=== PATIENT | female | born 1935 | race Hispanic/Latino ===

== ENCOUNTER 2018-04-02 15:45 | Inpatient (IN) | payer OTHER ==
[~2018-04-02] VITALS: Ht 154.9 cm; Wt 62.2 kg
[~2018-04-02 15:45] MED LIST: AMLO5TAB9 PO; BENA40TA9 PO; CYAN1000I IM; ERGO80004 PO; HYDR-4457 PO; HYDR25TA PO; LEVOTHYROXINE PO; LIOTHYRONINE PO; METO-391 PO; TAMO20TA4 PO
[2018-04-29 16:29] VITALS: BP 140/64
[2018-04-29 16:31] LABS: BASOPHILS % (AUTO) 0.8 % (0.0-5.0); EOSINOPHILS % (AUTO) 2.1 % (0.0-8.0); HEMATOCRIT 31.8 % (36-48); LYMPHOCYTES % (AUTO) 22.3 % (21.0-51.0); MEAN CORPUSCULAR HEMOGLOBIN 28.4 pg (27.0-33.0); MEAN CORPUSCULAR HGB CONC 32.3 g/dL (32.0-36.0); MEAN CORPUSCULAR VOLUME 88.2 fL (79-99); MONOCYTES % (AUTO) 11.8 % (3.0-13.0); NUCLEATED RED BLOOD CELLS 0.1 % (0.0-0.19); PLATELET COUNT (AUTO) 167 K/uL (130-400); RED BLOOD CELL COUNT(AUTO) 3.61 MIL/uL (4.00-5.50); RED CELL DISTRIBUTION WIDTH 13.1 % (11.0-15.5); WHITE BLOOD COUNT (AUTO) 7.1 K/uL (4.8-10.8)
[2018-04-29 16:32] LABS: APPEARANCE,URINE Clear (CLEAR); BILIRUBIN,URINE Negative (NEGATIVE); COLOR,URINE Yellow (YELLOW); GLUCOSE, URINE (UA) Negative (NEGATIVE); KETONES,URINE Negative (NEGATIVE); LEUKOCYTE ESTERASE ,URINE Moderate (NEGATIVE); NITRATE,URINE Negative (NEGATIVE); OCCULT BLOOD,URINE Negative (NEGATIVE); PROTEIN,URINE Negative (NEGATIVE); UROBILINOGEN,URINE 0.2 mg/dL (0.2-1.0)
[2018-04-29 16:42] LABS: INR 1.02 (0.85-1.15); PARTIAL THROMBOPLASTIN TIME 25.4 SEC (26.3-35.5); PROTHROMBIN TIME 10.7 SEC (9.6-11.6)
[2018-04-29 16:59] LABS: BACTERIA,URINE Few /HPF (None Seen); RBC,URINE 0-1 /HPF (0-1)
[2018-04-29 17:00] LABS: SQUAMOUS EPITHELIAL CELL,UR Few /HPF (0-2)
[2018-04-29] MEDS ORDERED: ROPI0.2527 PO (17:01)
[2018-04-29] MEDS ORDERED: VORT10TA PO (17:01)
[2018-04-29 17:04] LABS: CREATININE 1.1 mg/dL (0.5-1.5)
[2018-05-01] VITALS (18 sets, daily range): BP systolic 122–149; BP diastolic 46–89
[2018-05-01] MEDS ORDERED: GENTAMICIN SULFATE 240 MG in SODIUM CHLORIDE 0.9% 100 ML IV SCH (06:00)
[2018-05-01] MEDS: CEFAZOLIN SODIUM 1 GM VIAL IVP SCH ×3 (10:00→18:52)
[2018-05-01] MEDS ORDERED: SODIUM CHLORIDE 0.9% 1000ML 1,000 ML IV ONE (10:08)
[2018-05-01] MEDS ORDERED: ACET-2743 PO (10:23)
--- NOTE | 2018-05-01 10:28 | NUR ---
VALUABLES: CLOTHING, MEDICATIONS, UPPER PARTIALS , CELL PHONE AND PURSE GIVEN TO SISTER - NAOMIE THOMAS.
[2018-05-01] MEDS ORDERED: ACETAMINOPHEN EXTRA STRENGTH 500 MG TABLET ONE (11:31)
[2018-05-01] MEDS ORDERED: CELECOXIB 200 MG CAP ONE (11:31)
[2018-05-01] MEDS ORDERED: KETOROLAC TROMETHAMINE 15MG/ML ONE (11:31)
[2018-05-01] MEDS ORDERED: OXYCODONE HCL 10 MG TAB.SR.12H PO ONE (11:32)
[2018-05-01] MEDS ORDERED: TRANEXAMIC ACID 1000MG/10ML IV ONE (11:52)
[2018-05-01] MEDS ORDERED: ROPIVACAINE 0.5% 5MG/ML 30ML IJ ONE (11:54)
[2018-05-01] MEDS ORDERED: NEOSTIGMINE 5MG/5ML SYR IV ONE (12:01)
[2018-05-01] MEDS ORDERED: PROPOFOL 10 MG/ML 20ML VIAL IV ONE (12:01)
[2018-05-01] MEDS ORDERED: LIDOCAINE PF 2% 5ML ABBOJECT ONE (12:01)
[2018-05-01] MEDS ORDERED: DEXAMETHASONE SOD PHOSPHATE 10MG/ML 1ML VIAL ONE (12:01)
[2018-05-01] MEDS ORDERED: ONDANSETRON HCL 4 MG/2 ML VIAL ONE (12:01)
[2018-05-01] MEDS ORDERED: FENTANYL CITRATE PF 50 MCG/1 ML 2ML VIAL ONE ×2 (12:01→13:07)
[2018-05-01] MEDS ORDERED: GLYCOPYRROLATE 1 MG/5 ML SYRINGE ONE (12:01)
[2018-05-01] MEDS ORDERED: ROCURONIUM 10MG/1ML SYR 10 MG/ML ML ONE (12:02)
[2018-05-01] MEDS ORDERED: MIDAZOLAM HCL 1 MG/ML 2ML VIAL ONE (12:02)
[2018-05-01] MEDS ORDERED: CEFAZOLIN SODIUM 1 GM VIAL IRRIG ONE (13:32)
[2018-05-01] MEDS ORDERED: BUPIVACAINE/EPI/PF 0.5% 30ML VIAL IJ ONE (13:35)
[2018-05-01] MEDS ORDERED: ONDANSETRON HCL 4 MG/2 ML VIAL IVP PRN (14:15)
[2018-05-01] MEDS ORDERED: DiphenhydrAMINE HCL 50 MG/ML VIAL IVP PRN (14:15)
[2018-05-01] MEDS ORDERED: KETOROLAC TROMETHAMINE 15MG/ML IV PRN (14:15)
[2018-05-01] MEDS ORDERED: OXYCODONE HCL 5 MG TAB PO PRN (14:15)
[2018-05-01] MEDS ORDERED: POTASSIUM CHLORIDE 10% ELIXIR 20 MEQ/15 ML UDCUP PO PRN (14:15)
[2018-05-01] MEDS ORDERED: POTASSIUM CHLORIDE 20MEQ/100ML 100 ML IV PRN (14:15)
[2018-05-01] MEDS ORDERED: POTASSIUM CHLORIDE 20 MEQ ERTAB PO PRN (14:15)
[2018-05-01] MEDS ORDERED: TEMAZEPAM 15 MG CAPSULE PO PRN (14:15)
[2018-05-01] MEDS ORDERED: LIDOCAINE HCL-MPF 1% 2ML VIAL IVP PRN (14:15)
[2018-05-01] MEDS ORDERED: FERROUS FUMARATE 324 MG TABLET PO PRN (14:15)
--- NOTE | 2018-05-01 15:00 | NUR ---
TRANEXAMIC 1GM GIVEN IVPB Addendum: 05/01/18 at 1515 by SCOTTY TENORIO RN RN Amended: Links added.
--- NOTE | 2018-05-01 15:55 | NUR ---
POST SURGERY PATIENT RECEIVED FROM PACU VIA HOSPITAL BED IN STABLE CONDITION. APPEARS COMFORTABLE. SHE IS AWAKE, ALERT AND ORIENTED X3. IV TO THE LEFT ARM IS PATENT WITH NO REDNESS OR SWELLING NOTED. HE DRESSING TO LEFT KNEE IS INTACT WITH GREEN LIGHT FLASHING. SHE HAS BEEN ORIENTED TO ROOM AND USE OF CALL LIGHT. ALL PERSONAL BELONGINGS ARE WITHIN REACH AND BED IS IN LOWEST POSITION. POST OP VITAL SIGNS HAVE BEEN INITIATED. WILL CONTINUE TO MONITOR.
[2018-05-01] MEDS: SODIUM CHLORIDE 0.9% 1000ML 1,000 ML IV SCH ×2 (16:11→23:55)
[2018-05-01] MEDS: OXYCODONE HCL 5 MG TAB PO PRN (16:12)
[2018-05-01] MEDS: ACETAMINOPHEN EXTRA STRENGTH 500 MG TABLET PO SCH ×2 (16:15→21:31)
[2018-05-01] MEDS ORDERED: NON-FORMULARY MEDICATION 1 EACH (Acetaminophen (Tylenol Extra Strength) 500 MG) PO PRN (16:45)
[2018-05-01] MEDS ORDERED: HYDROCHLOROTHIAZIDE 25 MG TABLET PO SCH (16:45)
[2018-05-01] MEDS ORDERED: HYDROCODONE/ACETAMINOPHEN 5/325 MG TAB PO SCH (16:45)
[2018-05-01] MEDS ORDERED: HYDROCODONE/ACETAMINOPHEN 5/325 MG TAB PO PRN (18:00)
--- NOTE | 2018-05-01 19:48 | NUR ---
DC Plan Discussed dcp w/ patient. wants to stay w/ current HH- [facility]. Signed NADIRA and choice letter. Referral faxed w/ confirmation received. [facility] already has a standard walker and 3 in 1 commode. CM to follow up tomorrow w/ [facility]. CD Addendum: 05/01/18 at 1950 by JEFFREY KAY CM Amended: Links added.
[2018-05-01] MEDS: Metoprolol Succinate 50 MG PO SCH (21:00)
[2018-05-01] MEDS: BENAZEPRIL HCL 10 MG TABLET PO SCH (21:30)
[2018-05-01] MEDS: ASPIRIN 325 MG TABLET PO SCH (21:30)
[2018-05-01] MEDS: ROPINIROLE HCL 0.25 MG TABLET PO SCH (21:30)
[2018-05-01] MEDS: FAMOTIDINE 20MG TAB 20 MG TAB PO SCH (21:30)
[2018-05-01] MEDS: PREGABALIN 25 MG CAP PO SCH (21:30)
[2018-05-01] MEDS: CELECOXIB 200 MG CAP PO SCH (21:31)
[2018-05-02 00:06] VITALS: BP 103/50
[2018-05-02] MEDS ORDERED: CEFAZOLIN SODIUM 1 GM VIAL ONE (04:37)
[2018-05-02] MEDS: CEFAZOLIN SODIUM 1 GM VIAL IVP SCH (04:39)
[2018-05-02] MEDS: ACETAMINOPHEN EXTRA STRENGTH 500 MG TABLET PO SCH ×3 (04:39→20:28)
[2018-05-02 04:47] LABS: HEMATOCRIT 26.3 % (36-48); MEAN CORPUSCULAR HEMOGLOBIN 28.9 pg (27.0-33.0); MEAN CORPUSCULAR HGB CONC 32.9 g/dL (32.0-36.0); MEAN CORPUSCULAR VOLUME 87.7 fL (79-99); PLATELET COUNT (AUTO) 147 K/uL (130-400); RED BLOOD CELL COUNT(AUTO) 2.99 MIL/uL (4.00-5.50); WHITE BLOOD COUNT (AUTO) 10.9 K/uL (4.8-10.8)
[2018-05-02 04:58] LABS: CREATININE 1.3 mg/dL (0.5-1.5); POTASSIUM 3.7 mmol/L (3.5-5.1)
[2018-05-02 04:59] VITALS: BP 114/51
[2018-05-02] MEDS: LEVOTHYROXINE 25 MCG TABLET PO SCH (06:02)
[2018-05-02] MEDS: [UNRECOGNIZED DRUG - OTHER] PO SCH ×2 (06:02→06:30)
[2018-05-02] MEDS: CELECOXIB 200 MG CAP PO SCH ×2 (08:01→20:26)
[2018-05-02] MEDS: ASPIRIN 325 MG TABLET PO SCH ×2 (08:01→20:26)
[2018-05-02] MEDS: BENAZEPRIL HCL 10 MG TABLET PO SCH ×2 (08:01→20:26)
[2018-05-02] MEDS: PREGABALIN 25 MG CAP PO SCH ×2 (08:01→20:27)
[2018-05-02] MEDS: FAMOTIDINE 20MG TAB 20 MG TAB PO SCH ×2 (08:01→20:27)
[2018-05-02] MEDS: POLYETHYLENE GLYCOL 3350 17 GM POWD.PACK PO SCH (08:01)
[2018-05-02] MEDS: TAMOXIFEN CITRATE 20 MG PO SCH ×2 (08:02→09:00)
[2018-05-02] MEDS: AMLODIPINE BESYLATE 5 MG TAB PO SCH (08:03)
[2018-05-02] MEDS: OXYCODONE HCL 5 MG TAB PO PRN (08:06)
[2018-05-02 08:13] VITALS: BP 127/52
[2018-05-02] MEDS: CALCIUM CARBONATE 500 MG TABLET PO PRN ×2 (11:07→20:27)
[2018-05-02 11:55] VITALS: BP 117/59
--- NOTE | 2018-05-02 14:00 | NUR ---
ROUNDS PATIENT SITING UP IN BED CONVERSING WITH VISITORS. NO SIGNS OF DISTRESS OR DISCOMFORT. BED IS IN LOWEST POSITION AND LOCKED WITH PERSONAL BELONGINGS WITHIN REACH.
[2018-05-02 16:00] VITALS: BP 129/50
[2018-05-02 20:00] VITALS: BP 127/55
[2018-05-02] MEDS: ROPINIROLE HCL 0.25 MG TABLET PO SCH (20:26)
[2018-05-02] MEDS: Metoprolol Succinate 50 MG PO SCH (20:27)
[2018-05-03] VITALS: BP 126/50
[2018-05-03] MEDS: OXYCODONE HCL 5 MG TAB PO PRN (01:57)
[2018-05-03 04:15] VITALS: BP 115/50
[2018-05-03] MEDS: LEVOTHYROXINE 25 MCG TABLET PO SCH (06:09)
[2018-05-03] MEDS: ACETAMINOPHEN EXTRA STRENGTH 500 MG TABLET PO SCH ×2 (06:10→14:15)
[2018-05-03 08:00] VITALS: BP 142/49
[2018-05-03] MEDS: POLYETHYLENE GLYCOL 3350 17 GM POWD.PACK PO SCH (08:46)
[2018-05-03] MEDS: CELECOXIB 200 MG CAP PO SCH (08:46)
[2018-05-03] MEDS: AMLODIPINE BESYLATE 5 MG TAB PO SCH (08:46)
[2018-05-03] MEDS: ASPIRIN 325 MG TABLET PO SCH (08:46)
[2018-05-03] MEDS: FAMOTIDINE 20MG TAB 20 MG TAB PO SCH (08:46)
[2018-05-03] MEDS: PREGABALIN 25 MG CAP PO SCH (08:46)
[2018-05-03] MEDS: BENAZEPRIL HCL 10 MG TABLET PO SCH (08:47)
[2018-05-03 11:00] VITALS: BP 107/48
[2018-05-03 16:00] VITALS: BP 127/54
[2018-05-03] MEDS ORDERED: HYDR-4457 PO (17:24)
[2018-05-03] MEDS ORDERED: ASPI-1012 PO (17:24)
--- NOTE | 2018-05-03 19:00 | NUR ---
PT D/C USING TEACH BACK SATISFACTORILY IV REMOVED, CATHETER INTACT NO SIGNS OF DISTRESS NOTED, PT DENIES SOB OR CHEST PAIN DAUGHTER AT BED SIDE, EDUCATION GIVEN TO HER WELL UPON D/C PT STATED SHE WAS NOT A 100% SURE SHE HAD A WALKER, SASH MAKER SAMANTHA WAS NOTIFIED , SPOKE WITH THE PATIENT AND PATIENT THEN, STATED SHE INFACT, DID HAVE A WALKER FULL REPORT GIVEN TO [facility]
[2018-05-04] MEDS ORDERED: BISACODYL 10 MG SUPP.RECT RC PRN (14:15)
[2018-05-08] MEDS ORDERED: ERGOCALCIFEROL (VITAMIN D2) 50,000 UNIT CAPSULE PO SCH (09:00)
[2018-05-31] MEDS ORDERED: CYANOCOBALAMIN (VITAMIN B-12) 1000 MCG/ML 1ML VIAL IM SCH (09:00)
== END 2018-05-03 19:35 | disposition home health service (06) | DRG 470 ==
LOC: EDSTATUS 04-29 14:15 → DAHIP 05-01 09:26 → 4AH 05-01 14:33
PROVIDERS: ADMIT Orthopaedic Surgery; ATTEND Orthopaedic Surgery
PROC: 0SRD0J9 Replacement of Left Knee Joint with Synthetic Substitute, Cemented, Open Approach (ICD-10-PCS; principal; 2018-05-01 11:00)
PROC: 3E0T3BZ Introduction of Anesthetic Agent into Peripheral Nerves and Plexi, Percutaneous Approach (ICD-10-PCS; 2018-05-01 11:00)
DX: M17.12 Unilateral primary osteoarthritis, left knee (principal); Z96.651 Presence of right artificial knee joint; I10 Essential (primary) hypertension; G89.29 Other chronic pain; Z85.3 Personal history of malignant neoplasm of breast; Z90.49 Acquired absence of other specified parts of digestive tract; Z90.710 Acquired absence of both cervix and uterus; Z80.9 Family history of malignant neoplasm, unspecified
CPT/HCPCS: 36415; 80048; 81001; 85025; 85027; 85610; 85730; 88305; 88311; 96374; A4218; G0378; J0690; J1100; J1580; J1885; J2001; J2250; J2405; J2704; J2710; J2795; J3010; J3490; J7030

== ENCOUNTER → 2021-10-03 | Outpatient (CLI) | payer MEDICARE ==
[~2021-10-03] MED LIST changes: +ACET-2743 PO; +AMLO-257 PO; -AMLO5TAB9 PO; +ASPI-1012 PO; -BENA40TA9 PO; +BENA40TA92 PO; +ERGO800010 PO; -ERGO80004 PO; +ROPI0.2527 PO; +VORT10TA PO
== END | disposition home or self-care (01) ==
LOC: RAH 13:58
PROVIDERS: ATTEND Family Medicine
DX: S09.90XD Unspecified injury of head, subsequent encounter (principal); X58.XXXD Exposure to other specified factors, subsequent encounter; R51.9 Headache, unspecified
CPT/HCPCS: 70450

== ENCOUNTER → 2023-06-27 | Outpatient (CLI) | payer MEDICARE | END | disposition home or self-care (01) | LOC: RAH 07:48 | PROVIDERS: ATTEND Family Medicine | DX: N28.1 Cyst of kidney, acquired (principal); K76.89 Other specified diseases of liver; Z90.49 Acquired absence of other specified parts of digestive tract | CPT/HCPCS: 76705 ==

== ENCOUNTER 2023-07-19 10:22 | Day surgery (SDC) | payer MEDICARE ==
[2023-07-19] VITALS (11 sets, daily range): BP systolic 129–152; BP diastolic 56–67; PULSE 56–67; RESP 15–19
[~2023-07-19 10:22] MED LIST changes: -ACET-2743 PO; -ASPI-1012 PO; -CYAN1000I IM; -HYDR-4457 PO; -ROPI0.2527 PO; -VORT10TA PO
[2023-07-19] MEDS: 0.9%NACL 1000ML 1,000 ML IV ONE (11:40)
[2023-07-19] MEDS ORDERED: PROPOFOL 10 MG/ML 20ML VIAL IV ONE (12:38)
== END 2023-07-19 14:45 | disposition home or self-care (01) ==
LOC: DAH 10:22 → ENDO 10:22
PROVIDERS: ATTEND Internal Medicine Gastroenterology
DX: R93.2 Abnormal findings on diagnostic imaging of liver and biliary tract (principal); K29.50 Unspecified chronic gastritis without bleeding; I89.8 Other specified noninfective disorders of lymphatic vessels and lymph nodes; K22.9 Disease of esophagus, unspecified; R10.13 Epigastric pain; R19.7 Diarrhea, unspecified; K80.50 Calculus of bile duct without cholangitis or cholecystitis without obstruction; D50.9 Iron deficiency anemia, unspecified; I10 Essential (primary) hypertension; F41.9 Anxiety disorder, unspecified; F32.A Depression, unspecified; E03.9 Hypothyroidism, unspecified; Z79.899 Other long term (current) drug therapy; Z79.01 Long term (current) use of anticoagulants; Z80.52 Family history of malignant neoplasm of bladder; Z79.890 Hormone replacement therapy; Z90.49 Acquired absence of other specified parts of digestive tract; Z90.710 Acquired absence of both cervix and uterus; Z98.891 History of uterine scar from previous surgery
CPT/HCPCS: 43238; 43239; J7030 ×2; J2704; A4620; A4215 ×3; A4223; A7002; A4222; A4221; A4663; A4606; J3490

== ENCOUNTER → 2023-08-03 | Outpatient (CLI) | payer MEDICARE ==
[~2023-08-03] MED LIST changes: +ALPR0.255 PO; +CARI1.5C PO; +FLUO40CA7 PO; +IOHEXOL 350 MG/ML 100ML INFUS..BTL IV ONE; +MEMA5TAB16 PO; +OMEP40CA21 PO
== END | disposition home or self-care (01) ==
LOC: RAH 10:30
PROVIDERS: ATTEND Internal Medicine Gastroenterology
DX: K57.30 Diverticulosis of large intestine without perforation or abscess without bleeding (principal); K83.8 Other specified diseases of biliary tract; N28.1 Cyst of kidney, acquired; M47.815 Spondylosis without myelopathy or radiculopathy, thoracolumbar region; R93.2 Abnormal findings on diagnostic imaging of liver and biliary tract; D50.9 Iron deficiency anemia, unspecified; L90.5 Scar conditions and fibrosis of skin; I70.90 Unspecified atherosclerosis; Z90.49 Acquired absence of other specified parts of digestive tract
CPT/HCPCS: 74177; Q9967

== ENCOUNTER 2023-08-07 09:52 | Day surgery (SDC) | payer MEDICARE ==
[~2023-08-07] VITALS: Ht 167.6 cm; Wt 48.1 kg
[2023-08-07] VITALS (22 sets, daily range): BP systolic 128–169; BP diastolic 60–72; PULSE 64–70; RESP 14–23
[~2023-08-07 09:52] MED LIST changes: -ALPR0.255 PO; -CARI1.5C PO; -FLUO40CA7 PO; -IOHEXOL 350 MG/ML 100ML INFUS..BTL IV ONE; -MEMA5TAB16 PO; -OMEP40CA21 PO
[2023-08-07] MEDS ORDERED: MEMA5TAB16 PO (11:59)
[2023-08-07] MEDS ORDERED: FLUO40CA7 PO (11:59)
[2023-08-07] MEDS ORDERED: OMEP40CA21 PO (11:59)
[2023-08-07] MEDS ORDERED: CARI1.5C PO (11:59)
[2023-08-07] MEDS ORDERED: 0.9%NACL 1000ML 1,000 ML IV ONE (12:05)
[2023-08-07] MEDS ORDERED: SUCCINYLCHOLINE CHLORIDE 20 MG/ML 10 ML VIAL ONE (13:09)
[2023-08-07] MEDS ORDERED: PROPOFOL 10 MG/ML 20ML VIAL IV ONE (13:09)
[2023-08-07] MEDS: INDOMETHACIN 100 MG SUPP.RECT RC ONE (13:18)
== END 2023-08-07 15:50 | disposition home or self-care (01) ==
LOC: CANPRESDC → ENDO 09:52 → DAH 09:52 → ENDO 15:50
PROVIDERS: ATTEND Internal Medicine Gastroenterology
DX: K80.50 Calculus of bile duct without cholangitis or cholecystitis without obstruction (principal); R93.2 Abnormal findings on diagnostic imaging of liver and biliary tract; K22.9 Disease of esophagus, unspecified; D50.9 Iron deficiency anemia, unspecified; K29.50 Unspecified chronic gastritis without bleeding; R19.7 Diarrhea, unspecified; I10 Essential (primary) hypertension; F41.9 Anxiety disorder, unspecified; F32.A Depression, unspecified; K58.9 Irritable bowel syndrome, unspecified; E03.9 Hypothyroidism, unspecified; Z90.49 Acquired absence of other specified parts of digestive tract; Z90.710 Acquired absence of both cervix and uterus; Z79.899 Other long term (current) drug therapy
CPT/HCPCS: 43265; 43262; 74328; 93005; J0330; J7030 ×2; J2704; A4620; A4215 ×2; A4657; A7002; A4221; A4663; C1773; A4606; C1769; A4223; 74330; J3490

== ENCOUNTER 2023-08-07 22:10 | Observation (INO) | payer MEDICARE ==
[~2023-08-07] VITALS: Ht 157.5 cm; Wt 51.9 kg
[~2023-08-07 22:10] MED LIST changes: +CARI1.5C PO; +FLUO40CA7 PO; +IOHEXOL-350 50ML VIAL IV ONE; +MEMA5TAB16 PO; +OMEP40CA21 PO
[2023-08-07] MEDS: METOCLOPRAMIDE 10 MG/2 ML VIAL IVP ONE (22:57)
[2023-08-07] MEDS: FAMOTIDINE 20MG VIAL IV ONE (22:57)
[2023-08-07] MEDS: 0.9%NACL 1000ML 1,000 ML IV ONE (22:57)
[2023-08-07 23:29] LABS: BASOPHILS # (AUTO) 0.01 K/uL (0.00-0.20); BASOPHILS % (AUTO) 0.1 % (0.0-5.0); HEMATOCRIT 31.1 % (36-48); IMMATURE GRANULOCYTE ABSOLUTE 0.07 K/uL (0-1); LYMPHOCYTES # (AUTO) 0.5 K/uL (1.0-4.8); LYMPHOCYTES % (AUTO) 4.4 % (21.0-51.0); MEAN CORPUSCULAR HEMOGLOBIN 25.5 pg (27.0-33.0); MEAN CORPUSCULAR HGB CONC 32.5 g/dL (32.0-36.0); MEAN CORPUSCULAR VOLUME 78.5 fL (79-99); MONOCYTES # (AUTO) 1.3 K/uL (0.1-1.0); MONOCYTES % (AUTO) 12.2 % (3.0-13.0); NEUTROPHILS # (AUTO) 9.1 K/uL (1.8-7.7); NEUTROPHILS % (AUTO) 82.7 % (40.0-77.0); PLATELET COUNT (AUTO) 280 K/uL (130-400); RED BLOOD CELL COUNT(AUTO) 3.96 MIL/uL (4.00-5.50); RED CELL DISTRIBUTION WIDTH 13.9 % (11.0-15.5)
[2023-08-07 23:40] LABS: ALBUMIN 2.4 g/dL (3.5-5.0); BILIRUBIN,TOTAL 1.9 mg/dL (0.2-1.0); CREATININE 0.9 mg/dL (0.5-1.0); TOTAL PROTEIN, SERUM 6.1 g/dL (6.0-8.3)
[2023-08-08] VITALS (7 sets, daily range): BP systolic 137–178; BP diastolic 47–69; PULSE 61–88; RESP 16–20; O2SAT 96
[2023-08-08] MEDS ORDERED: IOHEXOL 350 MG/ML 100ML INFUS..BTL IV ONE (00:13)
[2023-08-08 00:33] LABS: APPEARANCE,URINE CLEAR (CLEAR); BILIRUBIN,URINE NEGATIVE (NEGATIVE); COLOR,URINE LIGHT-YELLOW (YELLOW); GLUCOSE, URINE (UA) NEGATIVE (NEGATIVE); KETONES,URINE NEGATIVE (NEGATIVE); LEUKOCYTE ESTERASE ,URINE 250 Leu/uL (NEGATIVE); NITRATE,URINE NEGATIVE (NEGATIVE); PH,URINE 6.5 (5.0-8.0); PROTEIN,URINE NEGATIVE (NEGATIVE); UROBILINOGEN,URINE 0.2 mg/dL (0.2-1.0)
[2023-08-08 00:39] LABS: ADD UA MICROSCOPIC YES
[2023-08-08 00:44] LABS: BACTERIA,URINE FEW /HPF (None Seen); SQUAMOUS EPITHELIAL CELL,UR RARE /HPF (0-2)
[2023-08-08] MEDS ORDERED: ALBUTEROL 0.083% 2.5 MG/3 ML INH IH PRN (01:30)
[2023-08-08] MEDS ORDERED: DIPHENHYDRAMINE HCL 25 MG CAPSULE PO PRN (01:30)
[2023-08-08] MEDS ORDERED: ARTIFICAL TEARS SOL 15 ML OP PRN ×2 (01:30→11:30)
[2023-08-08] MEDS ORDERED: POTASSIUM CHLORIDE 20MEQ/10ML 0 MEQ in 0.9%NACL 1000ML 1,000 ML IV SCH (01:30)
[2023-08-08] MEDS ORDERED: POLYETHYLENE GLYCOL 3350 17 GM POWD.PACK PO PRN (01:30)
[2023-08-08] MEDS ORDERED: GUAIFENESIN SUGAR-FREE 100 MG/5 ML UDCUP PO PRN (01:30)
[2023-08-08] MEDS ORDERED: GLUCAGON 1MG KIT 1 MG ML IM PRN (01:30)
[2023-08-08] MEDS ORDERED: DiphenhydrAMINE HCL 50 MG/ML VIAL IV PRN (01:30)
[2023-08-08] MEDS ORDERED: NITROGLYCERIN 0.4 MG SL TAB SL PRN (01:30)
[2023-08-08] MEDS ORDERED: DEXTROSE 50%-WATER 50 ML DISP.SYRIN IV PRN (01:30)
[2023-08-08] MEDS ORDERED: PHARMACY COMMUNICATION MISC SCH (02:00)
[2023-08-08] MEDS: ZOSYN 3.375GM +NS 50ML IV SCH (03:57)
[2023-08-08] MEDS: POTASSIUM CHLORIDE 20MEQ/10ML 20 MEQ in 0.9%NACL 1000ML 990 ML IV SCH (04:00)
[2023-08-08] MEDS: INSULIN HUMULIN R 100 UNIT/ML 3ML SQ SCH (06:17)
[2023-08-08 07:49] LABS: HEMATOCRIT 27.8 % (36-48); MEAN CORPUSCULAR HGB CONC 32.7 g/dL (32.0-36.0); MEAN CORPUSCULAR VOLUME 79.4 fL (79-99); RED BLOOD CELL COUNT(AUTO) 3.5 MIL/uL (4.00-5.50); WHITE BLOOD COUNT (AUTO) 11.6 K/uL (4.8-10.8)
[2023-08-08 08:22] LABS: ALBUMIN 2.2 g/dL (3.5-5.0); BILIRUBIN,TOTAL 2.1 mg/dL (0.2-1.0); CREATININE 0.8 mg/dL (0.5-1.0); POTASSIUM 3.1 mmol/L (3.5-5.1); TOTAL PROTEIN, SERUM 6.3 g/dL (6.0-8.3)
[2023-08-08] MEDS: 0.9%NACL 1000ML 1,000 ML IV SCH (08:30)
[2023-08-08] MEDS: FAMOTIDINE 20MG VIAL IV SCH (09:50)
[2023-08-08] MEDS: POTASSIUM CHLORIDE 20MEQ/100ML 100 ML IV PRN (10:29)
[2023-08-08] MEDS: ONDANSETRON 4MG INJ IV PRN (10:29)
[2023-08-08] MEDS: NS-20 MEQ KCL 1000ML 1,000 ML IV SCH (11:30)
[2023-08-08] MEDS: PROMETHAZINE HCL 25 MG/ML 1ML AMPULE IM ONE (12:10)
[2023-08-08] MEDS: METOCLOPRAMIDE 10 MG/2 ML VIAL IVP ONE (14:32)
[2023-08-08] MEDS: HYDRALAZINE 25MG TABLET PO PRN (16:52)
[2023-08-08] MEDS: METOCLOPRAMIDE 10 MG/2 ML VIAL IVP SCH (21:18)
[2023-08-09] VITALS (29 sets, daily range): BP systolic 149–185; BP diastolic 60–80; PULSE 67–105; RESP 15–20; O2SAT 96–99
[2023-08-09 05:39] LABS: HEMATOCRIT 26.5 % (36-48); MEAN CORPUSCULAR HEMOGLOBIN 25.7 pg (27.0-33.0); MEAN CORPUSCULAR HGB CONC 32.8 g/dL (32.0-36.0); MEAN CORPUSCULAR VOLUME 78.2 fL (79-99); RED BLOOD CELL COUNT(AUTO) 3.39 MIL/uL (4.00-5.50); RED CELL DISTRIBUTION WIDTH 14.3 % (11.0-15.5); WHITE BLOOD COUNT (AUTO) 10.1 K/uL (4.8-10.8)
[2023-08-09 06:06] LABS: ALBUMIN 2.1 g/dL (3.5-5.0); BILIRUBIN,TOTAL 1.4 mg/dL (0.2-1.0); CREATININE 0.9 mg/dL (0.5-1.0); MAGNESIUM 1.5 mg/dL (1.80-2.40); PHOSPHORUS 3.5 mg/dL (2.5-4.9); TOTAL PROTEIN, SERUM 6.2 g/dL (6.0-8.3)
[2023-08-09] MEDS: INDOMETHACIN 100 MG SUPP.RECT RC ONE (06:30)
[2023-08-09] MEDS ORDERED: IOHEXOL-350 50ML VIAL IV ONE (07:48)
[2023-08-09] MEDS ORDERED: LIDOCAINE PF 100MG/5ML (2%) SYRINGE 5ML ONE (12:57)
[2023-08-09] MEDS ORDERED: PROPOFOL 10 MG/ML 20ML VIAL IV ONE (12:57)
[2023-08-09] MEDS ORDERED: SUCCINYLCHOLINE CHLORIDE 20 MG/ML 10 ML VIAL ONE (12:57)
[2023-08-09] MEDS: ONDANSETRON 4MG INJ ONE (14:12)
[2023-08-09] MEDS: METOCLOPRAMIDE 10 MG/2 ML VIAL ONE (14:32)
[2023-08-09] MEDS: PROMETHAZINE HCL 25 MG/ML 1ML AMPULE IM PRN (15:32)
[2023-08-09] MEDS: HYDRALAZINE 20MG/ML VIAL ONE (15:35)
[2023-08-09] MEDS ORDERED: ALPR0.255 PO ×2 (15:39)
[2023-08-09] MEDS: MAGNESIUM 2GM PREMIX 50ML 50 ML IV PRN (17:48)
[2023-08-09] MEDS ORDERED: ALPRAZOLAM 0.25 MG TABLET PO PRN (18:00)
[2023-08-09] MEDS: CARIPRAZINE HYDROCHLORIDE 1.5 MG PO SCH (21:00)
[2023-08-09] MEDS: METOPROLOL SUCCINATE 50 MG TAB.SR.24H PO SCH (22:24)
[2023-08-09] MEDS: MEMANTINE HCL 5 MG TABLET PO SCH (22:24)
[2023-08-10] VITALS (7 sets, daily range): BP systolic 142–167; BP diastolic 50–64; PULSE 60–83; RESP 18–20; O2SAT 96
[2023-08-10 05:56] LABS: HEMATOCRIT 23.5 % (36-48); MEAN CORPUSCULAR HEMOGLOBIN 26.1 pg (27.0-33.0); MEAN CORPUSCULAR HGB CONC 32.8 g/dL (32.0-36.0); MEAN CORPUSCULAR VOLUME 79.7 fL (79-99); RED BLOOD CELL COUNT(AUTO) 2.95 MIL/uL (4.00-5.50); RED CELL DISTRIBUTION WIDTH 14.7 % (11.0-15.5); WHITE BLOOD COUNT (AUTO) 5.9 K/uL (4.8-10.8)
[2023-08-10 06:25] LABS: ALBUMIN 1.7 g/dL (3.5-5.0); BILIRUBIN,DIRECT 0.5 mg/dL (0.0-0.3); BILIRUBIN,TOTAL 0.8 mg/dL (0.2-1.0); CREATININE 0.7 mg/dL (0.5-1.0); PHOSPHORUS 2.8 mg/dL (2.5-4.9); POTASSIUM 3.1 mmol/L (3.5-5.1); TOTAL PROTEIN, SERUM 5.1 g/dL (6.0-8.3)
[2023-08-10] MEDS: HYDROCHLOROTHIAZIDE 25 MG TABLET PO SCH (08:46)
[2023-08-10] MEDS: PANTOPRAZOLE 40 MG TAB DR PO SCH (08:46)
[2023-08-10] MEDS: AMLODIPINE 5 MG TAB PO SCH (08:46)
[2023-08-10] MEDS: FLUOXETINE HCL 20 MG CAPSULE PO SCH (08:46)
[2023-08-10] MEDS ORDERED: POTASSIUM CHLORIDE 10% ELIXIR 20 MEQ/15 ML UDCUP PO PRN (09:00)
[2023-08-10] MEDS ORDERED: POTASSIUM CHLORIDE 20MEQ/100ML 100 ML IV PRN (09:00)
[2023-08-10] MEDS: KCL 20 MEQ ERTAB PO PRN (15:23)
== END 2023-08-10 15:30 | disposition home or self-care (01) ==
LOC: EDH 22:10 → EDHIP 08-08 01:24 → 3CH 08-08 04:17
PROVIDERS: ADMIT Internal Medicine Critical Care Medicine; ATTEND Internal Medicine Critical Care Medicine
DX: K85.90 Acute pancreatitis without necrosis or infection, unspecified (principal); K80.50 Calculus of bile duct without cholangitis or cholecystitis without obstruction; K57.30 Diverticulosis of large intestine without perforation or abscess without bleeding; I10 Essential (primary) hypertension; K21.9 Gastro-esophageal reflux disease without esophagitis; K83.8 Other specified diseases of biliary tract; F32.A Depression, unspecified; Z79.899 Other long term (current) drug therapy
CPT/HCPCS: 96375 ×2; 99285; 82550; 84484; 80053 ×2; 83690 ×4; 85025; 83605 ×2; 74178; 96376 ×3; 96372 ×2; 96361 ×2; 96365; 96366 ×3; 85027 ×3; 87088; 82948 ×11; 81001; 36415 ×4; 76705; 94664; 96368; 82150 ×2; 80076 ×2; 83735 ×2; 84100 ×2; 80048 ×2; 43264; 43277; 74328; 84145; J3490 ×6; J7030 ×3; J2765 ×8; Q9967 ×3; G0378 ×59; J2550 ×2; J2405 ×2; J3480 ×6; J2543 ×8; J3475; J0330; J2001; J0360; J2704; A4215; A4223; A4657; A7002; A4222; A4221; A4663; C1877; A4606; C1769; C1773; 74330

== ENCOUNTER 2023-08-24 13:32 | Emergency (ER) | payer MEDICARE ==
[~2023-08-24] VITALS: Ht 157.5 cm; Wt 49.9 kg
[~2023-08-24 13:32] MED LIST changes: +ALPR0.255 PO; -BENA40TA92 PO; -ERGO800010 PO; -IOHEXOL-350 50ML VIAL IV ONE; -LEVOTHYROXINE PO; -LIOTHYRONINE PO; -TAMO20TA4 PO
[2023-08-24 14:17] LABS: BASOPHILS # (AUTO) 0.05 K/uL (0.00-0.20); BASOPHILS % (AUTO) 0.8 % (0.0-5.0); EOSINOPHILS # (AUTO) 0.02 K/uL (0.00-0.70); EOSINOPHILS % (AUTO) 0.3 % (0.0-8.0); HEMATOCRIT 27.2 % (36-48); IMMATURE GRANULOCYTE ABSOLUTE 0.04 K/uL (0-1); LYMPHOCYTES # (AUTO) 0.9 K/uL (1.0-4.8); MEAN CORPUSCULAR HEMOGLOBIN 25.6 pg (27.0-33.0); MEAN CORPUSCULAR HGB CONC 32.7 g/dL (32.0-36.0); MEAN CORPUSCULAR VOLUME 78.4 fL (79-99); MONOCYTES # (AUTO) 0.9 K/uL (0.1-1.0); MONOCYTES % (AUTO) 14.1 % (3.0-13.0); NEUTROPHILS # (AUTO) 4.6 K/uL (1.8-7.7); NEUTROPHILS % (AUTO) 70.2 % (40.0-77.0); PLATELET COUNT (AUTO) 299 K/uL (130-400); RED BLOOD CELL COUNT(AUTO) 3.47 MIL/uL (4.00-5.50); RED CELL DISTRIBUTION WIDTH 16.5 % (11.0-15.5); WHITE BLOOD COUNT (AUTO) 6.5 K/uL (4.8-10.8)
[2023-08-24 14:36] LABS: ALBUMIN 1.9 g/dL (3.5-5.0); BILIRUBIN,TOTAL 0.4 mg/dL (0.2-1.0); CREATININE 0.8 mg/dL (0.5-1.0)
[2023-08-24 14:37] LABS: POTASSIUM 2.6 mmol/L (3.5-5.1)
[2023-08-24] MEDS: POTASSIUM BICARB/CIT AC 25 MEQ TABLET.EFF PO ONE (15:03)
[2023-08-24 15:27] LABS: MAGNESIUM 1.5 mg/dL (1.80-2.40)
[2023-08-24 16:14] LABS: APPEARANCE,URINE CLEAR (CLEAR); BILIRUBIN,URINE NEGATIVE (NEGATIVE); COLOR,URINE YELLOW (YELLOW); GLUCOSE, URINE (UA) NEGATIVE (NEGATIVE); KETONES,URINE NEGATIVE (NEGATIVE); LEUKOCYTE ESTERASE ,URINE 250 Leu/uL (NEGATIVE); NITRATE,URINE NEGATIVE (NEGATIVE); OCCULT BLOOD,URINE NEGATIVE (NEGATIVE); PH,URINE 6.5 (5.0-8.0); PROTEIN,URINE 30 mg/dL (NEGATIVE)
[2023-08-24 16:16] LABS: ADD UA MICROSCOPIC YES
[2023-08-24 16:20] LABS: BACTERIA,URINE RARE /HPF (None Seen); MUCUS,URINE RARE LPF (None Seen); SQUAMOUS EPITHELIAL CELL,UR RARE /HPF (0-2)
[2023-08-24] MEDS: LEVOFLOXACIN 500 MG TABLET PO ONE (17:02)
[2023-08-24] MEDS: MAGNESIUM OXIDE 400 MG TABLET PO ONE ×2 (17:02→18:02)
[2023-08-24 17:28] VITALS: BP 131/62; PULSE 65; RESP 18; O2SAT 94
[2023-08-24] MEDS ORDERED: CIPR250T6 PO (17:58)
[2023-08-26] MEDS ORDERED: IBUP-2091 PO (05:22)
[2023-08-26] MEDS ORDERED: METR-172 PO (05:22)
[2023-08-26] MEDS ORDERED: POLY17PO4 PO (05:24)
== END 2023-08-24 18:08 | disposition home or self-care (01) ==
LOC: EDH 13:32
DX: N39.0 Urinary tract infection, site not specified (principal); E86.0 Dehydration; E87.6 Hypokalemia; E83.42 Hypomagnesemia; I10 Essential (primary) hypertension
CPT/HCPCS: 36415; 80053; 81001; 83605; 83690; 83735; 84132; 84484; 85025; 87040; 87088; 93005

== ENCOUNTER → 2023-08-30 | Outpatient (CLI) | payer MEDICARE ==
[~2023-08-30] MED LIST changes: +CIPR250T6 PO; +IBUP-2091 PO; +METR-172 PO; +POLY17PO4 PO
== END | disposition home or self-care (01) ==
LOC: RAH 11:29
PROVIDERS: ATTEND Family Medicine
DX: R47.1 Dysarthria and anarthria (principal)
CPT/HCPCS: 70551

== ENCOUNTER 2023-09-20 11:40 | Observation (INO) | payer MEDICARE ==
[~2023-09-20] VITALS: Ht 160 cm; Wt 37.0 kg
[2023-09-20 14:12] LABS: BASOPHILS # (AUTO) 0.02 K/uL (0.00-0.20); BASOPHILS % (AUTO) 0.2 % (0.0-5.0); EOSINOPHILS # (AUTO) 0.02 K/uL (0.00-0.70); EOSINOPHILS % (AUTO) 0.2 % (0.0-8.0); HEMATOCRIT 30.4 % (36-48); LYMPHOCYTES # (AUTO) 0.6 K/uL (1.0-4.8); MEAN CORPUSCULAR HEMOGLOBIN 25.3 pg (27.0-33.0); MEAN CORPUSCULAR HGB CONC 31.3 g/dL (32.0-36.0); MEAN CORPUSCULAR VOLUME 81.1 fL (79-99); MONOCYTES # (AUTO) 0.6 K/uL (0.1-1.0); MONOCYTES % (AUTO) 7.1 % (3.0-13.0); NEUTROPHILS # (AUTO) 7.6 K/uL (1.8-7.7); NEUTROPHILS % (AUTO) 84.4 % (40.0-77.0); PLATELET COUNT (AUTO) 264 K/uL (130-400); RED BLOOD CELL COUNT(AUTO) 3.75 MIL/uL (4.00-5.50); RED CELL DISTRIBUTION WIDTH 19.7 % (11.0-15.5)
[2023-09-20 14:20] LABS: ALBUMIN 2.2 g/dL (3.5-5.0); BILIRUBIN,TOTAL 0.7 mg/dL (0.2-1.0); CREATININE 0.9 mg/dL (0.5-1.0); TOTAL PROTEIN, SERUM 6.6 g/dL (6.0-8.3)
[2023-09-20 14:24] LABS: POTASSIUM 2.5 mmol/L (3.5-5.1)
[2023-09-20] MEDS: ONDANSETRON 4MG INJ IVP ONE (15:30)
[2023-09-20] MEDS: POTASSIUM BICARB/CIT AC 25 MEQ TABLET.EFF PO ONE (15:30)
[2023-09-20] MEDS: POTASSIUM BICARB/CIT AC 25 MEQ TABLET.EFF ONE (16:56)
[2023-09-20] MEDS: ONDANSETRON 4MG INJ ONE (16:56)
[2023-09-20] MEDS ORDERED: BENA40TA92 PO (17:27)
[2023-09-20] MEDS ORDERED: LABETALOL 20MG SYG IV PRN (17:30)
[2023-09-20] MEDS ORDERED: ALPRAZOLAM 0.25 MG TABLET PO PRN (17:30)
[2023-09-20] MEDS ORDERED: POTASSIUM CHLORIDE 20MEQ/100ML 100 ML IV PRN (17:30)
[2023-09-20] MEDS ORDERED: LACTULOSE 20 GM/30 ML UDCUP PO PRN (17:30)
[2023-09-20] MEDS ORDERED: CLONIDINE HCL 0.1 MG TABLET PO PRN (17:30)
[2023-09-20] MEDS ORDERED: GLUCAGON 1MG KIT 1 MG ML IM PRN (17:30)
[2023-09-20] MEDS ORDERED: DEXTROSE 50%-WATER 50 ML DISP.SYRIN IV PRN (17:30)
[2023-09-20] MEDS ORDERED: POTASSIUM CHLORIDE 10% ELIXIR 20 MEQ/15 ML UDCUP PO PRN (17:30)
[2023-09-20] MEDS ORDERED: MAGNESIUM 2GM PREMIX 50ML 50 ML IV PRN (17:30)
[2023-09-20] MEDS ORDERED: TEMAZEPAM 15 MG CAPSULE PO PRN (17:30)
[2023-09-20] MEDS ORDERED: HYDROMORPHONE 1 MG INJ IVP PRN (17:30)
[2023-09-20] MEDS: LACTATED RINGERS 1000ML 1,000 ML IV SCH (18:07)
[2023-09-20] MEDS: CEFTRIAXONE 1G VIAL IV SCH (18:07)
[2023-09-20] MEDS ORDERED: IOHEXOL-350 75 ML VIAL IV ONE (18:12)
[2023-09-20] MEDS: MEMANTINE HCL 5 MG TABLET PO SCH (22:27)
[2023-09-20 22:40] VITALS: BP 153/61; PULSE 67; RESP 16; O2SAT 97
[2023-09-21] VITALS (9 sets, daily range): BP systolic 110–172; BP diastolic 59–74; PULSE 78–94; RESP 14–18; TEMP 97.3; O2SAT 96–100
[2023-09-21] MEDS: ONDANSETRON 4MG INJ IVP PRN (03:48)
[2023-09-21] MEDS: ACETAMINOPHEN 650 MG SUPPOSITORY RC PRN (03:49)
[2023-09-21 04:03] LABS: BASOPHILS # (AUTO) 0.01 K/uL (0.00-0.20); BASOPHILS % (AUTO) 0.1 % (0.0-5.0); HEMATOCRIT 26.2 % (36-48); LYMPHOCYTES # (AUTO) 0.8 K/uL (1.0-4.8); LYMPHOCYTES % (AUTO) 9.2 % (21.0-51.0); MEAN CORPUSCULAR HEMOGLOBIN 25.7 pg (27.0-33.0); MEAN CORPUSCULAR HGB CONC 32.4 g/dL (32.0-36.0); MEAN CORPUSCULAR VOLUME 79.2 fL (79-99); MONOCYTES # (AUTO) 0.8 K/uL (0.1-1.0); MONOCYTES % (AUTO) 9.3 % (3.0-13.0); NEUTROPHILS # (AUTO) 6.6 K/uL (1.8-7.7); NEUTROPHILS % (AUTO) 80.2 % (40.0-77.0); PLATELET COUNT (AUTO) 215 K/uL (130-400); RED BLOOD CELL COUNT(AUTO) 3.31 MIL/uL (4.00-5.50); RED CELL DISTRIBUTION WIDTH 19.3 % (11.0-15.5); WHITE BLOOD COUNT (AUTO) 8.2 K/uL (4.8-10.8)
[2023-09-21 04:27] LABS: CREATININE 0.7 mg/dL (0.5-1.0); MAGNESIUM 1.4 mg/dL (1.80-2.40); PHOSPHORUS 2.5 mg/dL (2.5-4.9); THYROID STIMULATING HORMONE 1.74 uIU/mL (0.36-3.74)
[2023-09-21 04:30] LABS: POTASSIUM 2.2 mmol/L (3.5-5.1)
[2023-09-21] MEDS: MAGNESIUM 2GM PREMIX 50ML 50 ML IV SCH (04:51)
[2023-09-21] MEDS: POTASSIUM CHLORIDE 20MEQ/100ML 100 ML IV PRN (05:38)
[2023-09-21] MEDS: POTASSIUM CHLORIDE 20MEQ/10ML 20 MEQ in LACTATED RINGERS 1000ML 1,000 ML IV SCH (06:39)
[2023-09-21] MEDS: POLYETHYLENE GLYCOL 3350 17 GM POWD.PACK PO SCH ×2 (09:00)
[2023-09-21] MEDS: AMLODIPINE 5 MG TAB PO SCH (10:06)
[2023-09-21] MEDS: FLUOXETINE HCL 20 MG CAPSULE PO SCH (10:06)
[2023-09-21] MEDS: BENAZEPRIL HCL 10 MG TABLET PO SCH (10:06)
[2023-09-21] MEDS: ENOXAPARIN SODIUM 30 MG/0.3 ML SQ SCH (10:09)
[2023-09-21] MEDS ORDERED: COMPOUND IV REFRIGERATED 1 EACH IVSOLN MISC PRN (14:00)
[2023-09-21] MEDS: M.V.I. 10 ML, FOLIC ACID 1 MG, THIAMINE HCL 100 MG in 0.9%NACL 1000ML IV SCH (14:47)
[2023-09-21] MEDS: METRONIDAZOLE 500MG/100ML BAG 100 ML IVPB SCH (15:01)
[2023-09-21] MEDS: KCL 20 MEQ ERTAB PO PRN (20:43)
[2023-09-21] MEDS: ACETAMINOPHEN 325 MG TAB PO PRN (21:05)
[2023-09-22 03:50] VITALS: BP 133/65; PULSE 98; RESP 14
[2023-09-22 08:00] VITALS: BP 160/61; PULSE 91; RESP 17
[2023-09-22 09:00] VITALS: O2SAT 97
[2023-09-22 12:00] VITALS: BP 150/76; PULSE 99; RESP 17
== END 2023-09-22 11:50 | disposition hospice, home (50) ==
LOC: EDH 11:40 → EDHIP 17:18 → 3DH 21:40
PROVIDERS: ADMIT Internal Medicine Pulmonary Disease; ATTEND Internal Medicine Pulmonary Disease
DX: R62.7 Adult failure to thrive (principal); R63.4 Abnormal weight loss; I10 Essential (primary) hypertension; F41.9 Anxiety disorder, unspecified; E87.6 Hypokalemia; E86.0 Dehydration; D64.9 Anemia, unspecified; R06.89 Other abnormalities of breathing; R59.1 Generalized enlarged lymph nodes; C81.90 Hodgkin lymphoma, unspecified, unspecified site; R19.09 Other intra-abdominal and pelvic swelling, mass and lump; R54 Age-related physical debility; R60.0 Localized edema
CPT/HCPCS: 36415; 74160; 74176; 80048; 80053; 83735; 84100; 84443; 85025; 93970; 96361; 96365; 96366; 96367; 96368; 96372; 96375; 96376; G0378; J0696; J1650; J2405; J3411; J3475; J3480; J3490; J7030; J7120; Q9967